=== PATIENT | male | born 1980 | race African-American/Black ===

== ENCOUNTER → 2016-12-21 | Day surgery (SDC) | payer OTHER ==
[~2016-12-21] MED LIST: CALCIUM + VITAM1 TAB PO; DILANTIN; DILANTIN PO; OMEPRAZOLE40 M1; TOPAMAX50 MG PO
--- NOTE | ~2016-12-21 | OR ---
Unit #: [id number] #: [id number] Patient: NEREIDA GUEVARA [id number] [address] [address] [id number] O MR#: [id number] NAME: NEREIDA GUEVARA ROOM: Date of Procedure: 12/21/2016 Admission Date: 12/21/2016 Surgeon: Bam Mancia M.D. : 1980 Attending Physician: Bam Mancia M.D. Primary Care Physician: Liza Amaya M.D. OPERATIVE REPORT PREOPERATIVES DIAGNOSES 1. Intermittent rectal bleeding. 2. History of colonic polyps. 3. Abnormal weight loss. POSTOPERATIVE DIAGNOSES 1. Intermittent rectal bleeding. 2. History of colonic polyps. 3. Abnormal weight loss. PROCEDURES PERFORMED 1. Esophagogastroduodenoscopy. 2. Biopsy of antrum for Helicobacter pylori testing. 3. Colonoscopy to cecum. ANESTHESIA Monitored anesthesia care. FINDINGS The patient was found on upper endoscopy to have a medium hiatal hernia and mild gastritis. On colonoscopy, the patient was found to have a normal colon except for mild internal hemorrhoids. SPECIMENS Sent to Pathology. COMPLICATIONS None apparent. CONDITION The patient tolerated the procedure well. INDICATIONS FOR PROCEDURE The patient is a 36-year-old black male, who has a history of colonic polyps. He also states that he has had some intermittent rectal bleeding and has had some abnormal weight loss. He presents at this time for evaluation by upper as well as lower endoscopy. DESCRIPTION OF PROCEDURE After obtaining informed consent, the patient was brought to the endoscopy suite and after adequate monitored anesthesia care, had the endoscope placed through the mouth into the upper esophagus under direct vision. It Unit #: [id number] #: [id number] Patient: NEREIDA GUEVARA was advanced to the second portion of the duodenum without difficulty with the lumen always in view. The duodenum was normal as was the duodenal bulb. The pylorus opened normally. There was some mild distal gastritis present, and a biopsy was obtained for Helicobacter pylori testing. On retroflexing back to the GE junction, there was a medium hiatal hernia seen. No other abnormalities were found in the proximal third, middle third, or incisura. On pulling back above the GE junction, there was no stenosis, stricture, or neoplasm seen. There was no significant esophagitis. The remaining portion of the esophagus was within normal limits. Laryngeal structures were grossly normal as viewed from above. At this point in time, the colonoscope was placed through the anus and slowly advanced to the level of the cecum without difficulty with lumen always in view. The cecum was normal as was the ileocecal valve. The ascending colon was normal as was the hepatic flexure, transverse colon, splenic flexure, descending colon, sigmoid colon, and rectum. On retroflexing the rectum to the anorectal junction, there were some mild internal hemorrhoids seen. The scope was removed without difficulty. The patient tolerated the procedure well and went from the endoscopy to the recovery area in stable condition. RECOMMENDATIONS Gastroesophageal reflux sheet given. High-fiber diet, lots of liquids, tucks or wipes p.r.n., Metamucil daily, and large glass of water. Follow up in our office as needed. Prescription for omeprazole was given for as needed for reflux. Dictated by... Seth Mojica/yovani TD: 12/22/2016 04:47 JOB #: [id number] CC: Liza Amaya M.D. [facility] OPERATIVE REPORT Page 1 of 1 X Bam Mancia MD X PROCEDURE OPERATIVE NOTE
== END | disposition home or self-care (01) ==
LOC: COPS 05:50
DX: K29.70 Gastritis, unspecified, without bleeding (principal); K44.9 Diaphragmatic hernia without obstruction or gangrene; K64.8 Other hemorrhoids; J45.909 Unspecified asthma, uncomplicated; R63.4 Abnormal weight loss; G40.909 Epilepsy, unspecified, not intractable, without status epilepticus; F17.210 Nicotine dependence, cigarettes, uncomplicated; Z68.22 Body mass index [BMI] 22.0-22.9, adult; Z88.8 Allergy status to other drugs, medicaments and biological substances; Z91.013 Allergy to seafood; Z79.899 Other long term (current) drug therapy
CPT/HCPCS: 87077